=== PATIENT | male | born 1975 | race Two or more races ===

== ENCOUNTER 2017-07-16 00:25 | Emergency (ER) | payer OTHER ==
[~2017-07-16] VITALS: Ht 172.7 cm; Wt 95.6 kg
[2017-07-16] MEDS ORDERED: ASPIRIN 81 MG TABLET CHEW PO ONE (01:30)
[2017-07-16] MEDS ORDERED: MAALOX/HYOSCYAMINE/LIDOCAINE 45 ML BTL PO ONE (01:30)
[2017-07-16] MEDS ORDERED: MAALOX/HYOSCYAMINE/LIDOCAINE 45 ML BTL ONE (01:32)
[2017-07-16] MEDS ORDERED: ASPIRIN 81 MG TABLET CHEW ONE (01:33)
[2017-07-16 02:04] LABS: HEMATOCRIT 42.9 % (39.2-51.8); HEMOGLOBIN 14.5 g/dL (13.7-18.0); WHITE BLOOD COUNT 7.6 x10^3/uL (3.4-10)
[2017-07-16 02:17] LABS: BLOOD UREA NITROGEN 15 mg/dL (7-18)
[2017-07-16 02:22] LABS: IS PT STATUS REG ER OR PRE ER? YES
[2017-07-16 02:29] VITALS: BP 128/86
== END 2017-07-16 02:59 | disposition home or self-care (01) ==
LOC: ED 02:25
DX: R07.89 Other chest pain (principal); I10 Essential (primary) hypertension
CPT/HCPCS: 36415; 71020; 80048; 82040; 84484; 85025; 93005; 99285

== ENCOUNTER 2019-09-10 10:31 | Emergency (ER) | payer OTHER ==
[~2019-09-10] VITALS: Ht 167.6 cm; Wt 101.2 kg
[2019-09-10] MEDS ORDERED: HYDROmorphone 1 MG/ML, 1ML INJ IM ONE (11:00)
[2019-09-10] MEDS ORDERED: PROMETHAZINE 25 MG/ML, 1ML ONE (11:00)
[2019-09-10] MEDS ORDERED: PROMETHAZINE 25 MG/ML, 1ML IM ONE (11:00)
[2019-09-10] MEDS ORDERED: HYDROmorphone 1 MG/ML, 1ML VIAL ONE (11:01)
--- NOTE | 2019-09-10 11:22 | NUR ---
PT PRESENTS TO ED WITH C/O HEADACHE X 1 WEEK AND DIZZINESS X 3 DAYS. PT NOTES DIZZINESS IS CONSTANT. EDMD CHRISTOPHER NOTIFIED OF C/O DIZZINESS, PER MD, NO EKG NEEDED. PT IS A&OX4, NEURO INTACT. NO DRIFT, BILATERAL GRASP EQUAL. 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 PT IS A [employer] SPE[employer], DECLINES INTERPETIVE SERVICES, PT REQUESTS FAMILY TO TRANSLATE. PT EDUCATED NOT TO DRIVE TODAY, AT BEDSIDE STATES SHE WILL BE DRIVING HOME. CALL LIGHT IN REACH, BED LOCKED AND IN LOWEST POSITION, AWAITING CT AND DISPO.
--- NOTE | 2019-09-10 12:10 | NUR ---
PT BACK FROM CT. 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 PT REPORTS HEADACHE PAIN LEVEL IS DOWN FROM 8/10 TO 6/10 S/P DILAUDID. NO N/V AT THIS TIME. AWAITING HEAD CT READ AND DISPO.
[2019-09-10] MEDS ORDERED: KETOROLAC 30 MG/1 ML IM ONE (12:30)
[2019-09-10] MEDS ORDERED: MECLIZINE CHEWABLE 25 MG TAB PO ONE (12:30)
[2019-09-10] MEDS ORDERED: CHLO25TA PO (12:42)
[2019-09-10] MEDS ORDERED: AMLO-150 PO (12:42)
[2019-09-10] MEDS ORDERED: LISI-170 PO (12:42)
--- NOTE | 2019-09-10 12:43 | NUR ---
pt medicated per emar, tolerated well. pt a&o, resps even and unlabored, nsr on mechanic recovery with no ectopy. all results back, chart up for recheck. awaiting MD and dispo.
[2019-09-10 13:13] VITALS: BP 128/68
--- NOTE | 2019-09-10 13:14 | NUR ---
PT A&OX4, RESPS EVEN ADN UNLABORED. NEURO INTACT. PT GIVEN DC INSTRUCTIONS AND SCRIPT. PT EDUCATED REGARDING DC RX FOR NAPROXEN. PT AMB TO DC DESK WITH STEADY GAIT, ACCOMPANIED BY FAMILY. NADN AT DC.
[2019-09-10] MEDS ORDERED: KETOROLAC 60 MG/2 ML ONE (13:50)
== END 2019-09-10 13:15 | disposition home or self-care (01) ==
LOC: ED 11:54
DX: R51 Headache (principal); I10 Essential (primary) hypertension
CPT/HCPCS: 36415; 70450; 80047; 96372; 99284; J1170; J1885; J2550